=== PATIENT | male | born 1930 | race Caucasian/White ===

== ENCOUNTER 2016-09-19 08:31 | Inpatient (IN) | payer OTHER ==
[~2016-09-19] VITALS: Ht 193 cm; Wt 75.8 kg
[~2016-09-19 08:31] MED LIST: ASCORBIC ACID500 MG PO; ASPIRIN81 M2 PO; CINNAMON500 MG PO; ENALAPRIL PO; GABAPENTIN300 MG PO; GLIPIZIDE5 MG PO; LEVAQUIN750 MG PO; LIVER DETOX PO; METFORMIN HCL500 MG PO
[2016-09-19] MEDS ORDERED: DEPAKOTE250 MG PO (08:53)
[2016-09-19] MEDS ORDERED: DONEPEZIL HCL10 MG PO (08:53)
[2016-09-19] MEDS ORDERED: FISH OIL 1,0001 EA10 PO (08:54)
[2016-09-19] MEDS ORDERED: ENALAPRIL MALE2.5 MG PO (08:54)
[2016-09-19] MEDS ORDERED: GABAPENTIN100 MG PO (08:55)
[2016-09-19] MEDS ORDERED: GLUCOSAMINE &1 EAC1 PO (08:56)
[2016-09-19] MEDS ORDERED: LATANOPROST2.5 ML BOTH EYES (08:57)
[2016-09-19] MEDS ORDERED: TYLENOL REGULA325 MG PO ×2 (08:57→09:00)
[2016-09-19] MEDS ORDERED: METFORMIN HCL500 MG PO (08:58)
[2016-09-19] MEDS ORDERED: PRESERVISION T1 EACH PO (08:59)
[2016-09-19 09:14] LABS: POINT-OF-CARE METER ID UU13113702; POINT-OF-CARE USER ID AHSDISBJH
[2016-09-19 11:34] LABS: ADD MIUA? NO; BILIRUBIN NEGATIVE; BLOOD NEGATIVE; COLOR YELLOW ((YELLOW)); GLUCOSE (STRIP) 150; KETONES 5; LEUKOCYTES NEGATIVE; NITRITE NEGATIVE; PROTEIN (STRIP) 30; SPECIFIC GRAVITY 1.018 (1.000-1.030); UCUL ADDED? NO; UROBILINOGEN 0.2 MG/DL (0.2-1.0)
[2016-09-19 12:08] LABS: HEMATOCRIT 41.8 % (38.0-50.0); MCH 31.7 PG (29.0-34.0); MCV 95.9 FL (86-99); MEAN PLAT.VOLUME 11.4 uM^3 (9.0-12.4); PLATELET COUNT 138 K/uL (156-360); RBC DIS.WIDTH-CV 12.8 % (11.8-14.6); RBC DIS.WIDTH-SD 44.9 % (39-53); RED BLOOD COUNT 4.36 M/uL (4.00-5.50); WHITE BLOOD COUNT 7.5 K/uL (4.1-10.2)
[2016-09-19 12:24] LABS: CHLORIDE 107 mEq/L (99-109); POTASSIUM 4.5 mEq/L (3.7-5.4); SODIUM 142 mEq/L (136-147)
[2016-09-19 12:25] LABS: GLUCOSE 198 mg/dL (70-99)
[2016-09-19 12:27] LABS: ANION GAP 12 MEQ/L (2-14)
[2016-09-19 12:29] LABS: GFR ESTIMATE (CALCULATED) 47 mL/min/
[2016-09-19 12:30] LABS: UREA NITROGEN (BUN) 34 mg/dL (9-23)
[2016-09-19 12:31] LABS: TROP-I INTERPRETATION NEGATIVE; TROPONIN-I 0.03 ng/mL (0.0-0.30)
[2016-09-19 16:24] LABS: POINT-OF-CARE METER ID UU13113702; POINT-OF-CARE USER ID AHSDISBJH
[2016-09-19] MEDS ORDERED: [UNRECOGNIZED DRUG - OTHER] TP (16:51)
[2016-09-19 18:41] VITALS: BP 169/80
[2016-09-19 23:50] VITALS: BP 159/74
[2016-09-20 05:55] LABS: ANION GAP 10 MEQ/L (2-14); CHLORIDE 106 MEQ/L (99-109); GFR ESTIMATE (CALCULATED) 51 mL/min/; GLUCOSE 158 mg/dL (70-99); SAMPLE HEMOLYSIS CHECK 0; SAMPLE ICTERIC CHECK 0; SAMPLE LIPEMIA CHECK 0; SODIUM 140 MEQ/L (136-147); UREA NITROGEN (BUN) 27 mg/dL (9-23)
[2016-09-20 07:11] LABS: POINT-OF-CARE METER ID UU14149397
[2016-09-20 08:01] VITALS: BP 113/56
[2016-09-20 11:25] LABS: POINT-OF-CARE METER ID UU14149397
[2016-09-20 12:15] VITALS: BP 146/65
[2016-09-20 16:32] VITALS: BP 137/61
[2016-09-20 23:42] VITALS: BP 167/76
[2016-09-21 06:14] LABS: ANION GAP 9 MEQ/L (2-14); CHLORIDE 105 MEQ/L (99-109); GFR ESTIMATE (CALCULATED) 44 mL/min/; GLUCOSE 158 mg/dL (70-99); SAMPLE HEMOLYSIS CHECK 0; SAMPLE ICTERIC CHECK 0; SAMPLE LIPEMIA CHECK 0; SODIUM 140 MEQ/L (136-147); UREA NITROGEN (BUN) 27 mg/dL (9-23)
[2016-09-21 06:54] LABS: POINT-OF-CARE METER ID UU14149397
[2016-09-21 08:30] VITALS: BP 145/66
[2016-09-21] MEDS ORDERED: JANUVIA25 M1 PO (14:25)
[2016-09-21 16:17] LABS: POINT-OF-CARE METER ID UU14188577
[2016-09-21 16:30] VITALS: BP 143/67
[2016-09-22 00:51] VITALS: BP 139/68
[2016-09-22 08:05] VITALS: BP 149/72
[2016-09-22 08:05] LABS: POINT-OF-CARE METER ID UU14149397
[2016-09-22 16:06] VITALS: BP 135/61
[2016-09-22 16:32] LABS: POINT-OF-CARE METER ID UU14188577
[2016-09-22 20:14] VITALS: BP 144/70
[2016-09-23 00:24] VITALS: BP 156/85
[2016-09-23 08:07] VITALS: BP 12/68; BP 129/68
[2016-09-23 11:32] LABS: POINT-OF-CARE METER ID UU14188577
== END 2016-09-23 12:29 | DRG 552 ==
LOC: EME 08:31 → EDOF 16:52 → 3EAST 16:52
PROVIDERS: Internal Medicine; Physician Assistant Medical
DX: S32.038A Other fracture of third lumbar vertebra, initial encounter for closed fracture (principal); S70.01XA Contusion of right hip, initial encounter; W01.0XXA Fall on same level from slipping, tripping and stumbling without subsequent striking against object, initial encounter; G30.9 Alzheimer's disease, unspecified; F02.80 Dementia in other diseases classified elsewhere, unspecified severity, without behavioral disturbance, psychotic disturbance, mood disturbance, and anxiety; E11.22 Type 2 diabetes mellitus with diabetic chronic kidney disease; I12.9 Hypertensive chronic kidney disease with stage 1 through stage 4 chronic kidney disease, or unspecified chronic kidney disease; N18.3 Chronic kidney disease, stage 3 (moderate); H40.9 Unspecified glaucoma; Y92.122 Bedroom in nursing home as the place of occurrence of the external cause; Z79.82 Long term (current) use of aspirin
CPT/HCPCS: 70450; 71020; 72131; 73502; 73700; 80048; 81003; 82948; 84484; 85027; 93005; 97530 GP; 99281; 99285; G8978 GP CM; G8979 GP CM; G8987 GO CM; G8988 GO CL; J1650; J1815

== ENCOUNTER 2017-07-06 05:28 | Emergency (ER) | payer OTHER ==
[~2017-07-06] VITALS: Ht 193 cm; Wt 69.1 kg
[~2017-07-06 05:28] MED LIST changes: +DEPAKOTE250 MG PO; +DONEPEZIL HCL10 MG PO; +ENALAPRIL MALE2.5 MG PO; +FISH OIL 1,0001 EA10 PO; +GABAPENTIN100 MG PO; +GLUCOSAMINE &1 EAC1 PO; +JANUVIA25 M1 PO; +LATANOPROST2.5 ML BOTH EYES; +PRESERVISION T1 EACH PO; +TYLENOL REGULA325 MG PO; +[UNRECOGNIZED DRUG - OTHER] TP
[2017-07-06] MEDS ORDERED: LEXAPRO20 MG PO (05:44)
[2017-07-06] MEDS ORDERED: METOPROLOL TART25 MG PO (05:45)
[2017-07-06] MEDS ORDERED: TRADJENTA5 MG PO (05:45)
[2017-07-06] MEDS ORDERED: TYLENOL WITH C1 EACH PO (07:06)
[2017-07-06] MEDS ORDERED: LIDOCAINE700 MG TP (07:06)
[2017-07-06 07:25] VITALS: BP 157/79
== END 2017-07-06 08:04 ==
LOC: EME 05:28
DX: S22.32XA Fracture of one rib, left side, initial encounter for closed fracture (principal); J98.11 Atelectasis; W01.0XXA Fall on same level from slipping, tripping and stumbling without subsequent striking against object, initial encounter; Y92.129 Unspecified place in nursing home as the place of occurrence of the external cause; F03.90 Unspecified dementia, unspecified severity, without behavioral disturbance, psychotic disturbance, mood disturbance, and anxiety; Z79.82 Long term (current) use of aspirin; E11.9 Type 2 diabetes mellitus without complications; I10 Essential (primary) hypertension; H35.30 Unspecified macular degeneration
CPT/HCPCS: 71046; 99281; 99284

== ENCOUNTER 2017-12-09 05:07 | Emergency (ER) | payer OTHER ==
[~2017-12-09] VITALS: Ht 188 cm; Wt 62.5 kg
[~2017-12-09 05:07] MED LIST changes: +LEXAPRO20 MG PO; +LIDOCAINE700 MG TP; +METOPROLOL TART25 MG PO; +TRADJENTA5 MG PO; +TYLENOL WITH C1 EACH PO
[2017-12-09 06:53] LABS: HEMATOCRIT 34.7 % (38.0-50.0); MCH 33.2 PG (29.0-34.0); MCHC 34.6 G/DL (30.0-36.0); MCV 96.1 FL (86-99); PLATELET COUNT 145 K/uL (156-360); RBC DIS.WIDTH-SD 45.8 % (39-53); RED BLOOD COUNT 3.61 M/uL (4.00-5.50); WHITE BLOOD COUNT 6.3 K/uL (4.1-10.2)
[2017-12-09 07:28] LABS: TROP-I INTERPRETATION NEGATIVE; TROPONIN-I 0.01 ng/mL (0.0-0.30)
[2017-12-09 07:31] LABS: CHLORIDE 109 MEQ/L (99-109); CREATININE 1.2 MG/DL (0.6-1.3); GFR ESTIMATE (CALCULATED) > 59 mL/min/ (58.99-99999); GLUCOSE 114 mg/dL (70-99); POTASSIUM 4.2 MEQ/L (3.7-5.4); SODIUM 142 MEQ/L (136-147); UREA NITROGEN (BUN) 17 mg/dL (9-23)
[2017-12-09 08:26] VITALS: BP 118/49
== END 2017-12-09 08:53 | disposition home or self-care (01) ==
LOC: EME 05:07
PROVIDERS: Emergency Medicine
DX: S00.93XA Contusion of unspecified part of head, initial encounter (principal); W18.00XA Striking against unspecified object with subsequent fall, initial encounter; Y93.01 Activity, walking, marching and hiking; Y92.099 Unspecified place in other non-institutional residence as the place of occurrence of the external cause; F03.90 Unspecified dementia, unspecified severity, without behavioral disturbance, psychotic disturbance, mood disturbance, and anxiety; E11.9 Type 2 diabetes mellitus without complications; I10 Essential (primary) hypertension; H35.30 Unspecified macular degeneration; Z79.84 Long term (current) use of oral hypoglycemic drugs
CPT/HCPCS: 70450; 72125; 80048; 84484; 85027; 93005; 99281; 99284; J1630